=== PATIENT | male | born 1985 | race African-American/Black ===

== ENCOUNTER 2020-10-15 10:02 | Emergency (ER) | payer MEDICAID ==
[~2020-10-15] VITALS: Ht 167.6 cm; Wt 80.7 kg
[2020-10-15 10:15] VITALS: BP 116/60
--- NOTE | 2020-10-15 10:17 | NUR ---
PT TAKEN TO BED 12.
--- NOTE | 2020-10-15 10:20 | NUR ---
35/M presents to ED requesting a prescription for pain medications. Pt states he was seen at [facility] 10/04/2020 for right arm fx. Patient states he ran out of pain medication and needs a new rx. Pt states he has an appointment to follow up with pcp for a referral to ortho. Pt has a splint in place to right arm.
--- NOTE | 2020-10-15 10:55 | NUR ---
Splint was re-wrapped with new williams bandages. Pt tolerated well. CMS intact.
[2020-10-15 10:56] VITALS: BP 116/60
--- NOTE | 2020-10-15 10:56 | NUR ---
Patient discharged with v/s stable. Written and verbal after care instructions given and explained. Patient alert, oriented and verbalized understanding of instructions. Ambulatory with steady gait. All questions addressed prior to discharge. ID band removed. Patient advised to follow up with PMD. Rx of Tramadol 50mg and Naprosyn 500mg given. Patient educated on indication of medication including possible reaction and side effects. Opportunity to ask questions provided and answered.
== END 2020-10-15 10:56 | disposition home or self-care (01) ==
LOC: MED 10:02
DX: S52.91XA Unspecified fracture of right forearm, initial encounter for closed fracture (principal); W22.01XA Walked into wall, initial encounter; Y93.89 Activity, other specified; Y92.89 Other specified places as the place of occurrence of the external cause; Y99.8 Other external cause status
CPT/HCPCS: 99283